=== PATIENT | male | born 1980 | race Caucasian/White ===

== ENCOUNTER 2022-09-18 14:15 | Emergency (ER) | payer MEDICAID ==
[~2022-09-18] VITALS: Ht 170.2 cm; Wt 74.8 kg
[2022-09-18] MEDS ORDERED: LIDOCAINE 1% 10 MG/ML, 20 ML MDV INJ ONE (15:15)
[2022-09-18] MEDS ORDERED: BACITRACIN 1 GM OINT TP ONE (15:15)
[2022-09-18] MEDS ORDERED: DIPHTH,PERTUSS(ACELL),TET VAC 0.5 ML VIAL (Tdap) I.M. ONE (15:15)
[2022-09-18 15:50] VITALS: BP_SYST 154
[2022-09-18] MEDS ORDERED: CLIN-142 PO (15:50)
--- NOTE | 2022-09-18 15:55 | NUR ---
Patient to ER bed 3 to gown for evaluation. Side rails up. Report given to JOSELYN LEWIS.
--- NOTE | 2022-09-18 16:06 | NUR ---
ASSESMENT PER FLOWSHEET. DR. MERRILL AT BS FOR WOUND I&D. PT MORRIS WELL. PENDING D/C
[2022-09-18 16:30] VITALS: BP_SYST 130
[2022-09-18] MEDS ORDERED: IBUPROFEN 800 MG TABLET PO ONE (16:30)
== END 2022-09-18 16:15 | disposition home or self-care (01) ==
LOC: SED 14:15
DX: L02.212 Cutaneous abscess of back [any part, except buttock and flank] (principal); Z79.899 Other long term (current) drug therapy
CPT/HCPCS: 90715; 99283

== ENCOUNTER 2022-09-20 10:28 | Emergency (ER) | payer MEDICAID ==
[~2022-09-20] VITALS: Ht 170.2 cm; Wt 74.8 kg
[~2022-09-20 10:28] MED LIST: CLIN-142 PO
[2022-09-20 10:56] VITALS: BP_SYST 160
--- NOTE | 2022-09-20 11:00 | NUR ---
Patient triaged and placed in waiting room. VSS and patient appears in no acute distress at this time. Accompanied by SELF, awaiting available bed, and MD notified of need for MSE.
--- NOTE | 2022-09-20 15:02 | NUR ---
Patient to ER bed 4 to gown for evaluation. Side rails up.
--- NOTE | 2022-09-20 15:05 | NUR ---
ER DR. GREER EXAMINING PT
[2022-09-20 15:12] VITALS: BP_SYST 184
--- NOTE | 2022-09-20 15:12 | NUR ---
Patient given written and verbal discharge instructions and verbalizes understanding. ER MD discussed with patient the results and treatment provided. Patient in stable condition. ID arm band removed. NO Rx given. Patient educated on pain management and to follow up with PMD. Pain Scale 0/10. Opportunity for questions provided and answered. Medication side effect fact sheet provided.
== END 2022-09-20 15:12 | disposition home or self-care (01) ==
LOC: SED 10:28
DX: Z48.00 Encounter for change or removal of nonsurgical wound dressing (principal); Z79.899 Other long term (current) drug therapy
CPT/HCPCS: 99281

== ENCOUNTER 2022-09-24 10:38 | Emergency (ER) | payer MEDICAID ==
[~2022-09-24] VITALS: Ht 167.6 cm; Wt 67.1 kg
[2022-09-24 10:48] VITALS: BP_SYST 177
[2022-09-24] MEDS ORDERED: AMLO5TAB4 PO (11:06)
== END 2022-09-24 11:31 | disposition home or self-care (01) ==
LOC: SED 10:38
DX: Z48.817 Encounter for surgical aftercare following surgery on the skin and subcutaneous tissue (principal); I10 Essential (primary) hypertension; Z79.899 Other long term (current) drug therapy
CPT/HCPCS: 99283